=== PATIENT | female | born 1970 | race American Indian/Alaskan Native ===

== ENCOUNTER 2016-03-02 15:15 | Outpatient (CLI) | payer OTHER ==
--- NOTE | 2016-03-03 11:48 | Mammography Report ---
BILATERAL DIGITAL SCREENING MAMMOGRAM with CAD: 03/02/16 15:15:00 CLINICAL: Routine screening. COMPARISON:02/15/15 FINDINGS: The breasts are heterogeneously dense, which may obscure small masses. No mass, architectural distortion or suspicious calcifications. IMPRESSION: No mammographic evidence of malignancy. BI-RADS CATEGORY: 1 - - Negative RECOMMENDATION: Routine mammographic screening in one year. COMMENT: Patient follow-up letters are generated by our [employer] application. The
== END 2016-03-02 15:16 | disposition home or self-care (01) ==
LOC: SPVWC 15:15
PROVIDERS: ATTEND Advanced Practice Midwife
DX: Z12.31 Encounter for screening mammogram for malignant neoplasm of breast (principal)
CPT/HCPCS: 77067; G0202

== ENCOUNTER 2017-03-21 10:24 | Outpatient (CLI) | payer OTHER ==
--- NOTE | 2017-03-21 16:44 | Mammography Report ---
BILATERAL DIGITAL SCREENING MAMMOGRAM with CAD: 03/21/17 10:24:00 CLINICAL: Routine screening. COMPARISON:03/02/16 FINDINGS: The breasts are heterogeneously dense, which may obscure small masses. No mass, architectural distortion or suspicious calcifications. IMPRESSION: No mammographic evidence of malignancy. BI-RADS CATEGORY: 1 - - Negative RECOMMENDATION: Routine mammographic screening in one year. COMMENT: Patient follow-up letters are generated by our [employer] application.
== END 2017-03-21 10:25 | disposition home or self-care (01) ==
LOC: SPVWC 10:24
PROVIDERS: ATTEND Nurse Practitioner Women's Health
DX: Z12.31 Encounter for screening mammogram for malignant neoplasm of breast (principal)
CPT/HCPCS: 77067

== ENCOUNTER 2018-05-24 08:39 | Outpatient (CLI) | payer OTHER ==
--- NOTE | 2018-05-24 10:23 | Mammography Report ---
BILATERAL DIGITAL SCREENING MAMMOGRAM with CAD: 05/24/18 08:39:00 CLINICAL: Routine screening. COMPARISON:03/21/17 FINDINGS: The breasts are heterogeneously dense, which may obscure small masses. No mass, architectural distortion or suspicious calcifications. IMPRESSION: No mammographic evidence of malignancy. BI-RADS CATEGORY: 1 - - Negative RECOMMENDATION: Routine mammographic screening in one year.
== END 2018-05-24 08:40 | disposition home or self-care (01) ==
LOC: SPVWC 08:39
PROVIDERS: ATTEND Nurse Practitioner Women's Health
DX: Z12.31 Encounter for screening mammogram for malignant neoplasm of breast (principal)
CPT/HCPCS: 77067

== ENCOUNTER 2020-10-01 11:40 | Outpatient (CLI) | payer BC ==
--- NOTE | 2020-10-01 17:29 | Mammography Report ---
DIGITAL SCREENING MAMMOGRAM WITH CAD, 10/01/2020 CLINICAL INFORMATION / INDICATION: Routine screening mammography. TECHNIQUE: Digital bilateral 2D mammography was obtained in the craniocaudal and mediolateral obliqu e projections. This examination was interpreted with the benefit of Computer-Aided Detection analysis . COMPARISON: 09/03/2019, 05/24/2018 FINDINGS: Breast Density: The breasts are heterogeneously dense, which may obscure small masses. No dominant mass, suspicious calcifications, or architectural distortion in either breast. Generalized benign-appearing right breast calcifications are unchanged. No other significant interval changes. IMPRESSION: No mammographic evidence of malignancy. Follow up recommendation: Routine yearly BI-RADS Category 2: Benign. A "normal" or negative report should not discourage follow up or biopsy of a clinically significant f inding. A written summary of these findings will be mailed to the patient. The patient will be entered into a mammography reporting system which will generate a reminder letter for the patient's next appointmen t at the appropriate interval. The [employer] recommends yearly mammograms starting at age 40 and continuing as l rebeca as a woman is in good health. Breast MRI is recommended for women with an approximate 20-25% or greater lifetime risk of breast cancer, including women with a strong family history of breast or ova josselyn cancer or who have been treated for Hodgkin's disease. Signer Name: Juan Valle MD Signed: 10/01/2020 5:24 PM Workstation Name: [id number]
== END 2020-10-01 11:41 | disposition home or self-care (01) ==
LOC: SPVWC 11:40
PROVIDERS: ATTEND Nurse Practitioner Women's Health
DX: Z12.31 Encounter for screening mammogram for malignant neoplasm of breast (principal)
CPT/HCPCS: 77067

== ENCOUNTER 2021-06-28 15:29 | Outpatient (CLI) | payer OTHER ==
--- NOTE | 2021-06-29 08:22 | Ultrasound Report ---
RIGHT DIGITAL DIAGNOSTIC MAMMOGRAM WITH CAD WITH TOMOSYNTHESIS, 06/28/2021 RIGHT LIMITED BREAST ULTRASOUND CLINICAL INFORMATION / INDICATION: Patient presents for evaluation of an area of palpable concern in the right breast. BREAST LUMP RIGHT N63.13 TECHNIQUE: Digital right mammographic imaging was performed. Spot compression views were obtained. Li mited ultrasound was performed. This examination was interpreted with the benefit of Computer-Aided D etection (CAD) analysis. COMPARISON: Prior mammogram 10/01/2020 and 09/03/2019 FINDINGS: Breast Density: The breasts are heterogeneously dense, which may obscure small masses. MAMMOGRAPHIC FINDINGS: No dominant mass, suspicious calcifications, or architectural distortion in th e right breast. There has been no significant change compared with the prior examination. There is no mammographic abnormality to account for the area of palpable concern in the right breast, therefore targeted right breast ultrasound was performed for further evaluation. ULTRASOUND FINDINGS: Targeted ultrasound evaluation was performed of the area of interest. Targeted ultrasound of the area of palpable concern in the right breast 6:00 position located 4 cm from the n ipple reveals an oval hypoechoic mass with predominantly circumscribed but partially indistinct len ns, measuring up to 10 x 5 x 8 mm. The mass is parallel. No internal vascularity is demonstrated. The re is increased through transmission. IMPRESSION: 1. An oval hypoechoic mass is seen at the site of palpable concern in the right breast and is conside red suspicious for malignancy, ultrasound-guided biopsy is recommended. Follow up recommendation: Biopsy BI-RADS Category 4: SUSPICIOUS FOR MALIGNANCY. A "normal" or negative report should not discourage follow up or biopsy of a clinically significant f inding. A written summary of these findings will be mailed to the patient. The patient will be entered into a mammography reporting system which will generate a reminder letter for the patient's next appointmen t at the appropriate interval. According to the [employer], yearly mammograms are recommended starting at age 40 and continuing as long as a woman is in good health. Breast MRI is recommended for women with an jaylan roximately 20-25% or greater lifetime risk of breast cancer, including women with a strong family his tory of breast or ovarian cancer and women who have been treated for Hodgkin's disease. Signer Name: Danni Wynn MD Signed: 06/29/2021 8:18 AM Workstation Name: [id number]
== END 2021-06-28 15:30 | disposition home or self-care (01) ==
LOC: SPVWC 15:29
PROVIDERS: ATTEND Pediatrics
DX: N63.14 Unspecified lump in the right breast, lower inner quadrant (principal); N63.13 Unspecified lump in the right breast, lower outer quadrant

== ENCOUNTER 2021-08-02 07:53 | Outpatient (CLI) | payer OTHER ==
--- NOTE | 2021-08-02 15:40 | Ultrasound Report ---
ULTRASOUND GUIDED RIGHT BREAST BIOPSY, 08/02/2021 CLINICAL INFORMATION / INDICATION: R92.8. Right breast mass COMPARISON: Diagnostic right mammogram 06/28/2021. Right breast ultrasound 06/28/2021. PROCEDURE: Risks, benefits, and indications to the procedure were discussed with the patient in detail, includin g bleeding, infection, hematoma formation, and inadequate tissue sampling. The patient agreed to proc eed with both verbal and written consent. A timeout procedure was performed with two patient identifi ers. The breast was prepped and draped in the usual sterile fashion. Lidocaine 1% with and without epineph rine were used for local anesthesia. Under direct ultrasound guidance, multiple 12-gauge core samples were obtained of the 1.0 x 0.7 x 0.6 cm hypoechoic mass in the right breast at 6:00 4 cm from the ni pple. A biopsy marker was then placed under ultrasound guidance. Biopsy device was removed and hemos tasis achieved with manual pressure. A sterile dressing was applied to the skin. The patient tolerated the procedure without difficulty. No complications were encountered. Postbiopsy instructions were discussed with the patient and given in writing. Specimens were sent to pathology. IMPRESSION: 1. Technically successful ultrasound guided right breast biopsy. Signer Name: Roel Ma Jr, MD Signed: 08/02/2021 3:36 PM Workstation Name: [id number]
== END 2021-08-02 07:54 | disposition home or self-care (01) ==
LOC: US 07:53
PROVIDERS: ATTEND Pediatrics
DX: N63.13 Unspecified lump in the right breast, lower outer quadrant (principal); D05.81 Other specified type of carcinoma in situ of right breast; Z79.899 Other long term (current) drug therapy
CPT/HCPCS: 88305; 88341; 88342

== ENCOUNTER 2021-08-05 10:26 | Outpatient (CLI) | payer OTHER ==
--- NOTE | 2021-08-05 13:31 | Ultrasound Report ---
ULTRASOUND BREAST BILATERAL COMPLETE, 08/05/2021 CLINICAL INFORMATION / INDICATION: C50.911 MALIGNANT NOEPLASM OF UNSPECIFIEDSITE RIGHT FEMALE BREAST. Patient has recent biopsy proven right breast cancer. Patient presents for bilateral survey breast u ltrasound. Patient also reports an additional possible area of palpable concern in the lateral right breast, and pain in the right axilla. TECHNIQUE: Complete sonographic evaluation of all 4 quadrants and retroareolar region was performed. COMPARISON: Prior right mammogram and right breast ultrasound 06/28/2021, and bilateral mammogram 10/01 FINDINGS: Right breast: Complete ultrasound of the right breast reveals dense fibroglandular tissue. The biopsy proven malignancy is seen in the right breast 6:00 position located 4 cm the nipple, measuring up to 1.3 x 0.6 x 1.0 cm, with an associated biopsy clip. There is a complicated cyst versus oval circumsc ribed hypoechoic mass in the 10:00 position located 6 cm from nipple measuring up to 8 x 4 x 6 mm. Th e nodule is parallel with no internal vascularity demonstrated. Additionally, there is a 5 mm benign cyst in the 10:00 position located 5 cm from the nipple. There is an indeterminate oval circumscribed hypoechoic mass seen in the right axilla measuring up to 8 x 5 x 4 mm. This lesion is parallel with no internal vascularity demonstrated. Several additional morphologically normal right axillary lymph nodes are seen. Left breast: Complete ultrasound of the left breast reveals dense fibroglandular tissue. No suspiciou s cystic or solid lesion identified. Morphologically normal lymph nodes are seen in the left axilla. IMPRESSION: 1. The biopsy-proven malignancy is seen in the 6:00 position of the right breast. 2. There is a benign-appearing oval circumscribed hypoechoic mass versus complicated cyst in the 10:0 0 right breast, as well as a oval circumscribed hypoechoic mass versus possible lymph node in the rig ht axilla which are indeterminate. Per the clinic note, a breast MRI has been ordered. Therefore, I w ould recommend further characterization of these areas on MRI. 3. No suspicious sonographic abnormality identified in the left breast. Follow up recommendation: Surgical consultation with Dr. Underwood is underway. BI-RADS Category 6: KNOWN BIOPSY-PROVEN MALIGNANCY. A normal or "negative" report should not preclude biopsy or follow-up of a clinically suspicious find ing. Signer Name: Danni Wynn MD Signed: 08/05/2021 1:26 PM Workstation Name: [id number]
== END 2021-08-05 10:27 | disposition home or self-care (01) ==
LOC: US 10:26
PROVIDERS: ATTEND Surgery
DX: C50.911 Malignant neoplasm of unspecified site of right female breast (principal)

== ENCOUNTER 2021-08-18 11:04 | Observation (INO) | payer OTHER ==
[2021-08-16 09:52] LABS: Hematocrit 38.9 % (30.3-42.9); Hemoglobin 13.7 gm/dl (10.1-14.3); Mean Corpuscular HGB Conc 35 % (30-34); Mean Corpuscular Volume 93 fl (79-97); Platelet Count 235 K/mm3 (140-440); Red Blood Count 4.18 M/mm3 (3.65-5.03)
[2021-08-16 10:10] LABS: BUN/Creatinine Ratio 13; Blood Urea Nitrogen 12 mg/dL (7-17); Calcium 9.7 mg/dL (8.4-10.2); Hemolysis Index 1
--- NOTE | 2021-08-16 10:21 | Anesthesia Consultation ---
Anesthesia Consult and Med Hx Date of service: 08/18/21 - Airway Anesthetic Teeth Evaluation: Caps (Missing) ROM Head & Neck: Adequate Mental/Hyoid Distance: Adequate Mallampati Class: Class II Intubation Access Assessment: Good - Pre-Operative Health Status ASA Pre-Surgery Classification: ASA2 Proposed Anesthetic Plan: General Nerve Block: ES/PECS - Pulmonary Hx Smoking: No Hx Respiratory Symptoms: No (+2FS) Hx Sleep Apnea: No - Cardiovascular System Hx Hypertension: Yes (Pt reports negative ECHO 12/2019) - Central Nervous System Hx Psychiatric Problems: No - Gastrointestinal Hx Gastroesophageal Reflux Disease: No - Endocrine Hx Thyroid Disease: Yes Hx Hyperthyroidism: Yes (Dx 23 YEARS AGO. RECIEVED RADIATION 23 YEARS AGO. RESOLVED.) - Hematic Hx Anemia: Yes Hx Sickle Cell Disease: No - Other Systems Hx Alcohol Use: Yes (OCCASIONALLY) Hx Substance Use: No Hx Cancer: Yes Hx Obesity: No
[~2021-08-18 11:04] MED LIST: ACETAMINOPHEN 500 MG TAB PO NR; CELECOXIB 200 MG CAP PO NR; LACTATED RINGERS 1,000 ML IV SCH; MAGNESIUM OXIDE 400 MG TAB PO NR; MIDAZOLAM 2 MG/2 ML INJ IV NR; ceFAZolin/STERILE WATER 2 GM/20 ML SYRINGE IV NR; fentaNYL 100 MCG/2 ML INJ IV NR
--- NOTE | 2021-08-18 11:58 | Anesthesia Day of Surgery ---
Anesthesia Day of Surgery - Day of Surgery Patient Examined: Yes Patient H&P Reviewed: Yes Patient is NPO: Yes
[2021-08-18] MEDS ORDERED: ONDANSETRON 4 MG/2 ML INJ IV PRN ×3 (12:00→19:58)
[2021-08-18] MEDS ORDERED: HYDROmorphone 0.5 MG/0.5 ML INJ IV PRN ×5 (12:00→19:58)
[2021-08-18] MEDS ORDERED: LIDOCAINE (1%) 10 MG/1 ML VIAL 20 ML MDV ONE (12:26)
[2021-08-18] MEDS ORDERED: BUPIVACAINE/PF (0.25%) 2.5 MG/ML 30 ML VIAL INFILTRATI ONE (12:46)
[2021-08-18] MEDS ORDERED: dexAMETHasone 4 MG/ML VIAL ONE (12:47)
[2021-08-18] MEDS ORDERED: BUPIVACAINE/PF (0.25%) 2.5 MG/ML 10 ML VIAL INFILTRATI ONE (12:47)
[2021-08-18] MEDS ORDERED: ONDANSETRON 4 MG/2 ML INJ ONE (13:26)
[2021-08-18] MEDS ORDERED: fentaNYL 100 MCG/2 ML INJ ONE (13:26)
[2021-08-18] MEDS ORDERED: LIDOCAINE MPF (2%) 20 MG/1 ML VIAL 5 ML ONE (13:26)
[2021-08-18] MEDS ORDERED: ROCURONIUM 50 MG/5 ML INJ IV ONE (13:26)
[2021-08-18] MEDS ORDERED: propofoL 200 MG/20 ML VIAL IV ONE (13:27)
[2021-08-18] MEDS ORDERED: SODIUM CHLORIDE P/F VIAL 10 ML 10 ML ONE (14:40)
[2021-08-18] MEDS ORDERED: METHYLENE BLUE 50 MG/10 ML AMP ONE (14:41)
[2021-08-18] MEDS ORDERED: PHENYLEPHRINE/NS 1,000 MCG/10 ML SYRINGE (OR USE) IV ONE (15:04)
[2021-08-18] MEDS ORDERED: METHYLENE BLUE 50 MG/10 ML AMP IRRIGATION ONE (15:22)
[2021-08-18] MEDS ORDERED: SODIUM CHLORIDE 0.9% P/F 10 ML VIAL INFILTRATI ONE (15:22)
[2021-08-18] MEDS ORDERED: WATER FOR IRRIG STERILE 1,500 ML BOTTLE IR ONE (15:23)
[2021-08-18] MEDS ORDERED: dexAMETHasone 20 MG/5 ML VIAL ONE (15:27)
--- NOTE | 2021-08-18 15:43 | Mammography Report ---
MAMMOGRAPHIC GUIDED RIGHT BREAST NEEDLE LOCALIZATION, 08/18/2021 CLINICAL INFORMATION / INDICATION: RT BREAST CAN. COMPARISON: Ultrasound breast biopsy 08/02/2021. Diagnostic mammogram 06/28/2021. PROCEDURE: Risks, benefits and indications to the procedure were discussed with the patient. The patient agreed to proceed with both verbal and written consent. A timeout procedure was performed with 2 patient noam ntifiers. The breast was prepped with betadine in the usual sterile fashion. Approximately 5 cc of Lidocaine 1% was used for local anesthesia. Under direct digital mammographic guidance, a localization wire was p laced in satisfactory position with distal tip traversing the targeted lesion. Post-biopsy mammogram confirms satisfactory positioning of the localization wire. The wire was secured to the skin with a s terile dressing. The patient tolerated procedure without difficulty. No complications were encountered. IMPRESSION: 1. Satisfactory mammographic guided wire localization of the right breast. Signer Name: Roel Ma Jr, MD Signed: 08/18/2021 3:39 PM Workstation Name: [id number]
[2021-08-18] MEDS ORDERED: LACTATED RINGERS 1,000 ML ONE ×2 (17:14→18:54)
[2021-08-18] MEDS ORDERED: NEOSTIGMINE 10MG/10 ML INJ MDV ONE (18:56)
[2021-08-18] MEDS ORDERED: ACETAMINOPHEN 325 MG TAB PO PRN (19:32)
[2021-08-18] MEDS ORDERED: MORPHINE 4 MG/1 ML INJ IV PRN (19:32)
--- NOTE | 2021-08-18 20:02 | Post Anesthesia Evaluation ---
- Post Anesthesia Evaluation Patient Participated: Yes Airway Patent: Yes Stable Respiratory Function: Yes Nausea/Vomiting: No Temp > 96.8F: Yes Pain Manageable: Yes Adequeate Hydration: Yes Anesthesia Complications: No Block Receding Appropriately: Yes Patient on Ventilator: No
[2021-08-18] MEDS: SODIUM CHLORIDE 0.9% 1000 ML 1,000 ML IV SCH (23:01)
[2021-08-18] MEDS: FAMOTIDINE 20 MG TAB PO SCH (23:01)
[2021-08-19] MEDS: HYDROcodone/ACETAMINOPHEN 5-325 MG TAB PO PRN ×2 (01:42→11:36)
[2021-08-19 06:06] LABS: Hematocrit 32.5 % (30.3-42.9); Hemoglobin 11.1 gm/dl (10.1-14.3); Lymphocytes # (Auto) 0.9 K/mm3 (1.2-5.4); Lymphocytes % (Auto) 10.7 % (13.4-35.0); Mean Corpuscular HGB Conc 34 % (30-34); Mean Corpuscular Volume 94 fl (79-97); Monocytes # (Auto) 0.7 K/mm3 (0.0-0.8); Monocytes % (Auto) 7.8 % (0.0-7.3); Platelet Count 190 K/mm3 (140-440); Red Blood Count 3.45 M/mm3 (3.65-5.03); Red Cell Distribution Width 12.8 % (13.2-15.2)
[2021-08-19 06:20] LABS: BUN/Creatinine Ratio 14; Blood Urea Nitrogen 11 mg/dL (7-17); Calcium 8.6 mg/dL (8.4-10.2); Hemolysis Index 0
[2021-08-19 08:33] VITALS: BP 128/75
[2021-08-19] MEDS: SODIUM CHLORIDE 0.9% 1000 ML 1,000 ML IV SCH (08:36)
[2021-08-19] MEDS: FAMOTIDINE 20 MG TAB PO SCH (09:55)
[2021-08-19] MEDS ORDERED: VALSARTAN 160MG TAB PO SCH (10:00)
[2021-08-19] MEDS ORDERED: amLODIPine 5 MG TAB PO SCH (10:00)
--- NOTE | 2021-08-19 10:23 | Operative Report ---
Operative Report Operative Report: Date of operation: 08/18/2021 Preop diagnosis: Right breast cancer Postop diagnosis: Same. Procedure: Right partial mastectomy with right axillary sentinel lymph node and bilateral mastopexy Surgeon: Dr. Underwood Grocery Packer: Dr. Georges Anesthesia: General endotracheal anesthesia with rectus spinous plane block EBL: 100 cc Specimen: [place] lymph node #1 and 2, right lumpectomy weighing 20 g with margins marked left lumpectomyweighing 40gm. Findings: This is an 51-year-old female with a right breast cancer located in the lower outer quadrant. Timeouts and consents were on the chart. Patient received 2 g of Ancef. Preoperatively the patient was marked for a bilateral dounut mastopexy.She had a localiation wire placed in the radiology dept. After induction 1 cc of technetium was injected around the nipple areolar complex. In addition methylene blue and a 50-50 mix with saline was injected. The methylene blue was isolated to the areas of the crescent mastopexy. The breast is then prepped with Betadine to include the axilla and the XXX arm. The arm is circumferentially draped. The neoprobe was used to locate the approximate location of the sentinel lymph node. An incision is made 1 cm below the hairline in the axilla. Sharp dissection is done with the electrocautery and 2 sentinel lymph nodes are found. When this is completed sterile gauze is placed into the wound. Attention is then turned to the right breast where a #10 scalpel was used to make the incisions for the donut mastopexy. The area is de-epithelialized. The palpable tumor is then dissected circumferentially down to the chest wall. The overlying skin is not included. The specimen is then weighed and the margins are paited. Hemostasis is obtained with electrocautery. Skin flaps are elevated for 5 cm. A Deep flap is then also elevated for 5 cm just above the chest wall. The initial defect is noted to be 4 by 3 cm. After the flaps are elevated the defect is increased to 8 by 6 cm or 48cm. 3-0 Vicryl sutures used to close the defect and advance the local adjacent tissue flaps. A drain is placed into the axilla and into the chest wall dissection. 3-0 Vicryl was used to close the axillary subcutaneous dissection. 4-0 Monocryl is used to close the skin in the axilla and to close the skin i ncision for the donut mastopexy. A 3-0 prolene is placed to pursestring the outer incision to a 5 cm size. Similar incisions are made on the left side for symmetry mastopexy. 40 gm of breast tissue is removed from the left breast. Tissue is advanced to clsoe the defect. The wounds are closed as described above for the left side. VANESSA drain is placed. A wound VAC is placed over both wounds. The procedure is ended.
--- NOTE | 2021-08-19 10:25 | Progress Note ---
Assessment and Plan This patient is status post partial mastectomy for right breast. She feels well. She will be discharged today Subjective Date of service: 08/19/21 Patient Reports: Positive: no new complaints, still having pain Narrative: This patient is status post partial mastectomy for right breast. She feels well. She will be discharged today Objective Vital Signs - 12hr 08/19/21 08/19/21 08/19/21 01:10 04:38 08:10 Temperature 98.0 F 98.0 F 98.1 F Pulse Rate 70 70 70 Respiratory 20 18 16 Rate Blood Pressure 146/84 123/69 128/75 O2 Sat by Pulse 99 100 100 Oximetry - Labs 08/19/21 05:07 08/19/21 05:07 Diabetes panel 08/19/21 Range/Units 05:07 Sodium 140 (137-145) mmol/L Potassium 4.2 (3.6-5.0) mmol/L Chloride 107.5 H (98-107) mmol/L Carbon Dioxide 25 (22-30) mmol/L BUN 11 (7-17) mg/dL Creatinine 0.8 (0.6-1.2) mg/dL Glucose 99 (65-100) mg/dL Calcium 8.6 (8.4-10.2) mg/dL Calcium panel 08/19/21 Range/Units 05:07 Calcium 8.6 (8.4-10.2) mg/dL Pituitary panel 08/19/21 Range/Units 05:07 Sodium 140 (137-145) mmol/L Potassium 4.2 (3.6-5.0) mmol/L Chloride 107.5 H (98-107) mmol/L Carbon Dioxide 25 (22-30) mmol/L BUN 11 (7-17) mg/dL Creatinine 0.8 (0.6-1.2) mg/dL Glucose 99 (65-100) mg/dL Calcium 8.6 (8.4-10.2) mg/dL Adrenal panel 08/19/21 Range/Units 05:07 Sodium 140 (137-145) mmol/L Potassium 4.2 (3.6-5.0) mmol/L Chloride 107.5 H (98-107) mmol/L Carbon Dioxide 25 (22-30) mmol/L BUN 11 (7-17) mg/dL Creatinine 0.8 (0.6-1.2) mg/dL Glucose 99 (65-100) mg/dL Calcium 8.6 (8.4-10.2) mg/dL
[2021-08-20] MEDS ORDERED: [UNRECOGNIZED DRUG - OTHER] PO SCH (10:00)
[2021-08-20] MEDS ORDERED: AMLODIPINE BESYLATE PO SCH (10:00)
[2021-08-20] MEDS ORDERED: VALSARTAN PO SCH (10:00)
--- NOTE | 2021-08-22 08:09 | Mammography Report ---
RIght breast tissue specimen radiograph INDICATION: Excisional procedure today Specimen contains the end of the wire and the site of recent biopsy including the clip. IMPRESSION: Satisfactory specimen radiograph Signer Name: Skyler Garcia MD Signed: 08/22/2021 8:04 AM Workstation Name: [id number]
== END 2021-08-19 12:10 | disposition home or self-care (01) ==
LOC: OR 11:04 → OB 19:33
PROVIDERS: ADMIT Surgery; ATTEND Surgery
DX: C50.911 Malignant neoplasm of unspecified site of right female breast (principal); Z20.822 Contact with and (suspected) exposure to COVID-19; I10 Essential (primary) hypertension; N62 Hypertrophy of breast; I89.0 Lymphedema, not elsewhere classified; D64.9 Anemia, unspecified; E07.9 Disorder of thyroid, unspecified; A64 Unspecified sexually transmitted disease; Z79.899 Other long term (current) drug therapy; Z98.890 Other specified postprocedural states; Z98.891 History of uterine scar from previous surgery
CPT/HCPCS: 19281; 19301; 19316; 36415; 38525; 64450; 76098; 78800; 80048; 84703; 85025; 85027; 88307; 88333; A9541; G0378; G0379; J0690; J1100; J1170; J2250; J2370; J2405; J2704; J2710; J3010; J3490; J7030; J7120; Q9968; U0003; 88305; 88341; 88342